=== PATIENT | female | born 1990 | race Caucasian/White ===

== ENCOUNTER 2016-12-10 11:48 | Inpatient (IN) | payer MEDICAID ==
[~2016-12-10] VITALS: Ht 152.4 cm; Wt 56.1 kg
[2016-12-10] MEDS ORDERED: PRENAT PO (12:06)
[2016-12-10 12:07] VITALS: Ht 152.4 cm; Wt 56.1 kg
[2016-12-10 12:08] VITALS: BP 107/68; PULSE 106; RESP 18
--- NOTE | 2016-12-10 12:51 | RADRPT ---
PROCEDURE: OB ultrasound for biophysical profile CLINICAL INDICATION: Spontaneous rupture of membranes. TECHNIQUE: Multiple sonographic images of the pelvis were obtained. Transabdominal view of the gr avid uterus are available for review. The images were reviewed on a PACS workstation. COMPARISON: None FINDINGS: breathing movement = 2/2 tone = 2/2 motion = 2/2 Quantitative amniotic fluid volume = 2/2 RACHEAL = 16.9 cm Single live intrauterine with cardiac activity at 146 beats per minute. There is a fundal placenta without previa. IMPRESSION: 1. Single living intrauterine gestation in cephalic position. 2. Biophysical profile = 8. 3. RACHEAL = 16.9 cm. RPTAT: [facility] Physician Valentina Date Time Electronically viewed and signed by Physician Valentina on 12/10/2016 12:50 /
[2016-12-10] MEDS ORDERED: CARBOPROST 250 MCG INJ IM PRN (14:00)
[2016-12-10] MEDS ORDERED: IBUPROFEN 600 MG TAB PO PRN (14:00)
[2016-12-10] MEDS ORDERED: BUTORPHANOL 2 MG INJ IV PRN ×2 (14:00)
[2016-12-10] MEDS ORDERED: OXYTOCIN 30 UNITS/LR 500 ML IV PRN (14:00)
[2016-12-10] MEDS ORDERED: MISOPROSTOL 200 MCG TAB PR PRN (14:00)
[2016-12-10] MEDS ORDERED: LIDOCAINE 1% (MPF) 30 ML INJ INJ PRN (14:00)
[2016-12-10] MEDS ORDERED: METHYLERGONOVINE 0.2 MG INJ IM PRN (14:00)
[2016-12-10] MEDS ORDERED: OXYCODONE/ASPIRIN (4.88/325) TAB PO PRN (14:00)
[2016-12-10] MEDS ORDERED: OXYTOCIN 30 UNITS/LR 500 ML IV SCH ×3 (14:00)
[2016-12-10] MEDS ORDERED: HYDROCODONE/APAP (5/325) TAB PO PRN (14:00)
[2016-12-10] MEDS ORDERED: OXYCODONE/ACETAMINOPHEN (5/325) TAB PO PRN (14:00)
[2016-12-10] MEDS: LACTATED RINGER'S 1,000 ML IV SCH ×3 (14:34→23:47)
[2016-12-10 15:23] LABS: BASOPHIL # 0.1 10^3/ul (0.0-0.1); BASOPHILS % 0.6 % (0.0-2.0); EOSINOPHILS # 0.1 10^3/ul (0.0-0.5); EOSINOPHILS % 1.6 % (0.0-7.0); HEMATOCRIT 34.9 % (37.0-47.0); HEMOGLOBIN 12.7 g/dl (12.0-16.0); LYMPHOCYTES # 2.1 10^3/ul (0.8-2.9); LYMPHOCYTES % 22.8 % (15.0-51.0); MEAN CORPUSCULAR HEMOGLOBIN 34.8 pg (29.0-33.0); MEAN CORPUSCULAR HGB CONC 36.4 g/dl (32.0-37.0); MEAN CORPUSCULAR VOLUME 95.6 fl (82.0-101.0); MEAN PLATELET VOLUME 11.4 fl (7.4-10.4); MONOCYTE # 0.9 10^3/ul (0.3-0.9); MONOCYTES % 10.1 % (0.0-11.0); NEUTROPHILS % 64.3 % (39.0-77.0); PLATELET COUNT 156 10^3/UL (140-415); RED BLOOD COUNT 3.65 10^6/ul (4.20-5.40); RED CELL DISTRIBUTION WIDTH 12.1 % (11.5-14.5)
[2016-12-10 15:38] LABS: INR 0.89; PT RATIO 0.9
[2016-12-10 15:39] LABS: PARTIAL THROMBOPLASTIN TIME 28.2 Sec (25.0-35.0)
[2016-12-10 15:44] LABS: ALANINE AMINOTRANSFERASE 30 IU/L (13-69); ALBUMIN 3.3 g/dl (3.3-4.9); ALKALINE PHOSPHATASE 165 IU/L (42-121); ANION GAP 12 (8-16); ASPARTATE AMINO TRANSFERASE 24 IU/L (15-46); BILIRUBIN,INDIRECT 0.4 mg/dl (0-1.1); BILIRUBIN,TOTAL 0.4 mg/dl (0.2-1.3); BLOOD UREA NITROGEN 8 mg/dl (7-20); CALCIUM 8.7 mg/dl (8.4-10.2); CARBON DIOXIDE 25 mmol/L (21-31); CHLORIDE 102 mmol/L (97-110); CREATININE 0.49 mg/dl (0.44-1.00); GLUCOSE 75 mg/dl (70-220); POTASSIUM 3.4 mmol/L (3.5-5.1); SODIUM 136 mmol/L (135-144); TOTAL PROTEIN 6.6 g/dl (6.1-8.1)
[2016-12-10] MEDS ORDERED: LACTATED RINGER'S 1,000 ML IV PRN (22:00)
[2016-12-11] MEDS ORDERED: AMPICILLIN 2 GM/NS (PMX) 100 ML IV ONE (01:30)
[2016-12-11] MEDS ORDERED: AMPICILLIN 2 GM/NS (PMX) 100 ML ONE (01:44)
[2016-12-11] MEDS ORDERED: AMPICILLIN 1 GM/NS (PMX) 50 ML ONE (05:17)
[2016-12-11] MEDS: AMPICILLIN 1 GM/NS (PMX) 50 ML IV SCH ×2 (05:28→09:56)
[2016-12-11] MEDS: LACTATED RINGER'S 1,000 ML IV SCH ×2 (06:02→22:55)
[2016-12-11] MEDS ORDERED: OXYTOCIN 30 UNITS/LR 500 ML BAG IV ONE (07:00)
[2016-12-11] MEDS ORDERED: DEXTROSE 5%-LR 1,000 ML IV SCH (08:41)
[2016-12-11] MEDS ORDERED: CEFAZOLIN 2 GM/50 ML (PMX) 50 ML IVPB SCH (09:00)
--- NOTE | 2016-12-11 09:29 | RADRPT ---
PROCEDURE: US OB. CLINICAL INDICATION: Leaking amniotic fluid. TECHNIQUE: Multiple sonographic images of the uterus were obtained. The images were revi ewed on a PACS workstation. COMPARISON: No prior studies are available for comparison. FINDINGS: There is a single live intrauterine gestation. heart rate is 132 beats per minute. Measurements were made in order to determine age. The results are as follows: BPD = 9.17 cm. HC = 32.75 cm. AC = 36.15 cm. FL = 7.28 cm. Estimated weight is 3590 +/- 539 grams. LMP growth percentile is 61 %. Menstrual age by ultrasound dates is 38 weeks 0 days. The estimated date of delivery is 12/25/2016. Position is cephalic and placenta is fundal grade II. There is no evidence for an abruption or place nta previa. IMPRESSION: 1. Single live intrauterine gestation of 38 weeks 0 days menstrual age by ultrasound dates. 2. The estimated date of delivery is 12/25/2016. RPTAT: QQ .Kit Green MD, Date Time Electronically viewed and signed by .Kit Green MD, on 12/11/2016 09:28 .R/
--- NOTE | 2016-12-11 09:30 | RADRPT ---
PROCEDURE: US biophysical profile. CLINICAL INDICATION: Leaking amniotic fluid. TECHNIQUE: Multiple sonographic images of the uterus were obtained. The images were revi ewed on a PACS workstation. COMPARISON: No prior studies are available for comparison. FINDINGS: There is a single live intrauterine gestation. heart rate is 137 beats per minute. The position is cephalic. The placenta is fundal grade II with no abruption or previa. The RACHEAL is 17.3 cm. (Normal = 5-20 cm.) Breathing Movement: 2 Gross Body Movement: 2 Tone: 2 Qualitative Amniotic Fluid Volume: 2 TOTAL: 8 IMPRESSION: 1. The biophysical score is 8/8. RPTAT: QQ .Kit Green MD, MD Date Time Electronically viewed and signed by .Kit Green MD, on 12/11/2016 09:29 .R/
[2016-12-11] MEDS ORDERED: NALOXONE (0.4 MG/ML) INJ IV PRN (13:00)
[2016-12-11] MEDS ORDERED: MEPERIDINE 25 MG INJ IV PRN (13:00)
[2016-12-11] MEDS ORDERED: DIPHENHYDRAMINE 50 MG INJ IV PRN ×2 (13:00)
[2016-12-11] MEDS ORDERED: FENTAnyl 50 MCG/ML VIAL IV PRN ×2 (13:00)
[2016-12-11] MEDS ORDERED: HYDROmorphONE (0.2 MG/ML) 10ML SYG IV PRN ×2 (13:00)
[2016-12-11] MEDS ORDERED: METOCLOPRAMIDE 10 MG INJ IV PRN (13:00)
[2016-12-11] MEDS ORDERED: HYDROmorphONE 1 MG/ML SYG IV PRN ×2 (13:00)
[2016-12-11] MEDS ORDERED: ONDANSETRON 4 MG INJ IV PRN ×2 (13:00)
[2016-12-11] MEDS ORDERED: KETOROLAC 30 MG INJ IV PRN ×2 (13:00)
[2016-12-11] MEDS ORDERED: morphine SULFATE/PF (10 MG/10 ML) INJ ONE (14:34)
[2016-12-11] MEDS ORDERED: PHENYLephrine (100 MCG/ML) 5ML SYG ONE ×2 (14:41→15:10)
--- NOTE | 2016-12-11 15:09 | HP ---
Date/Time of Note Date/Time of Note DATE: 12/11/16 TIME: 15:08 OB - History Hx of Present Free Text/Dictation at 39 weeks with SROM Care: Good Care Ultrasounds: Normal mid trimester US Obstetrical Complications: None Medical Complications: None Past Family/Social History * Past Medical, Surgical, Family and Obstetric Histories reviewed from chart. OB Admission Exam Vital Signs Vital Signs Vital Signs Date Time Temp Pulse Resp B/P Pulse Ox O2 Delivery O2 Flow Rate FiO2 12/10/16 12:08 97.8 106 18 107/68 Room Air Physical Exam HEENT: WNL Heart: Rhythm Normal Lungs: Clear, Equal Abdomen: WNL Extremities: Normal Reflexes: Normal Cervical Dilatation: 1cm Effacement: 0% Station: -3 Membranes: Ruptured Amniotic Fluid: Clear Heart Rate: 130's Accelerations: Accelerations Present Decelerations: No Decelerations Contractions on Admission: None Last 72 hours Lab Results CBC & BMP 12/10/16 14:50 Liver Function Test 12/10/16 14:50 Alanine Aminotransferase (ALT/SGPT) 30 Albumin 3.3 Alkaline Phosphatase 165 H Aspartate Amino Transf (AST/SGOT) 24 Direct Bilirubin 0.00 Total Protein 6.6 OB Assessment/Plan Reason for admission: rupture of membranes Plan: Section (FOR NON REASURING TRACING) SUHAIL LAMBERT MD Dec 11, 2016 15:09
[2016-12-11] MEDS ORDERED: EPHEDrine SULFATE 50 MG/5 ML SYG ONE (15:10)
--- NOTE | 2016-12-11 15:10 | OPR ---
Operative Report Planned Procedure Procedure date Dec 11, 2016 Performed by: SUHAIL LAMBERT MD Assisting provider: FUAD RING MD Anesthesia Type: spinal Procedure Description Under satisfactory SPINAL[] anesthesia, the patient was prepped and draped and placed in a supine position, tilted to the left. Pfannenstiel incision was made , carried through the subcutaneous tissue. Bleeders brought under control with electrocautery. Fascia incised to the length of the incision. Rectus muscles from the fascia, divided midline. Peritoneum exposed, entered through a transverse incision. Exploration of abdomen revealed gravid uterus. Bladder flap was developed. Transverse incision was made in the lower segment of the uterus. Amniotic sac ruptured. [] amniotic fluid noted. [] Nasal oropharyngeal suction was performed. The baby was handed to the team for immediate attention. The placenta was delivered manually intact. Uterine cavity was cleaned with wet sponge and drainage established. Uterus closed in 2 layers using []ONE MONOCRYL in continuous fashion. Peritoneal cavity irrigated with warm saline. Sponge, needle and instrument count reported to be correct. Abdominal peritoneum closed with [] continuously. Rectus muscle approximated with []. Fascia closed with ONE MONOCRYL [], and skin closed with maribel. Estimated blood loss 700[]mL. Urine bag contained []mL of urine Post-Procedure Findings: Live Baby [], Apgars [] and [], weight [], position [], [] presentation []cord. Physician Certification I, the undersigned physician, hereby certify that I have discussed the procedure described in this consent form with this patient (or the patient's legal civil rights representative), including: * The risk and benefits of the procedure; * Any adverse reactions that may reasonably be expected to occur; * Any alternative efficacious methods of treatment which may be medically viable ; * The potential problems that may occur during recuperation; * Potential for blood transfusion and associated risks/benefits; and * Any research or economic interest I may have regarding this treatment. I further certify that the patient/legally responsible person was encouraged to ask question and that all questions were answered. SUHAIL LAMBERT MD Dec 11, 2016 15:10
[2016-12-11 18:20] VITALS: BP 99/55; PULSE 85; RESP 19
[2016-12-11 18:50] VITALS: BP 94/48; PULSE 105; RESP 19
[2016-12-11] MEDS ORDERED: METHYLERGONOVINE 0.2 MG INJ IM PRN (19:00)
[2016-12-11] MEDS ORDERED: OXYTOCIN 30 UNITS/LR 500 ML IV PRN (19:00)
[2016-12-11] MEDS ORDERED: NACL 0.9% 3 ML SYG IV SCH (19:00)
[2016-12-11] MEDS ORDERED: CARBOPROST 250 MCG INJ IM PRN (19:00)
[2016-12-11] MEDS ORDERED: HYDROCODONE/APAP (5/325) TAB PO PRN (19:00)
[2016-12-11] MEDS ORDERED: OXYCODONE/ACETAMINOPHEN (5/325) TAB PO PRN (19:00)
[2016-12-11] MEDS ORDERED: LANOLIN 7 GM TUBE TOP PRN (19:00)
[2016-12-11] MEDS ORDERED: MISOPROSTOL 200 MCG TAB PR PRN (19:00)
[2016-12-11] MEDS ORDERED: NA PHOSPHATE/BIPHOS 133 ML ENEMA PR PRN (19:00)
[2016-12-11 19:45] VITALS: BP 99/56; PULSE 86; RESP 19
[2016-12-11] MEDS: IBUPROFEN 800 MG TAB PO SCH (22:00)
[2016-12-11] MEDS: OXYTOCIN 30 UNITS/LR 500 ML IV SCH ×2 (22:04→22:39)
[2016-12-12] VITALS: BP 105/59; PULSE 89; RESP 19
[2016-12-12] MEDS: LACTATED RINGER'S 1,000 ML IV SCH ×4 (01:46→23:55)
[2016-12-12 04:05] VITALS: BP 106/61; PULSE 88; RESP 19
[2016-12-12] MEDS: IBUPROFEN 800 MG TAB PO SCH ×3 (06:00→21:33)
[2016-12-12 07:45] VITALS: BP 107/60; PULSE 95; RESP 19
[2016-12-12 08:22] LABS: BASOPHIL # 0.1 10^3/ul (0.0-0.1); BASOPHILS % 0.7 % (0.0-2.0); EOSINOPHILS # 0.1 10^3/ul (0.0-0.5); EOSINOPHILS % 0.8 % (0.0-7.0); HEMATOCRIT 29.1 % (37.0-47.0); HEMOGLOBIN 10.5 g/dl (12.0-16.0); LYMPHOCYTES # 1.5 10^3/ul (0.8-2.9); MEAN CORPUSCULAR HEMOGLOBIN 34.9 pg (29.0-33.0); MEAN CORPUSCULAR HGB CONC 36.1 g/dl (32.0-37.0); MEAN CORPUSCULAR VOLUME 96.7 fl (82.0-101.0); MEAN PLATELET VOLUME 11.5 fl (7.4-10.4); MONOCYTE # 0.9 10^3/ul (0.3-0.9); MONOCYTES % 8.7 % (0.0-11.0); NEUTROPHILS % 75.5 % (39.0-77.0); PLATELET COUNT 120 10^3/UL (140-415); RED BLOOD COUNT 3.01 10^6/ul (4.20-5.40); WHITE BLOOD COUNT 10.6 10^3/ul (4.8-10.8)
--- NOTE | 2016-12-12 11:36 | CONS ---
Date/Time of Note Date/Time of Note DATE: 12/12/16 TIME: 11:36 Consultation Date/Type/Reason Admit Date/Time Dec 10, 2016 at 12:54 Initial Consult Date 12/12/16 Type of Consultation: Anesthesiology Reason for Consultation Follow up 24 HR Interval Summary Free Text/Dictation Pt seen and examined is POD#1 s/p primary c/s. Pt received spinal duramorph for post-op pain control. She states she is doing well and her pain is adequately controlled at this time. No N/V/D/C/LOWE. No numbness in her extremities. Will continue to follow. Constitutional: improved, no complaints Exam/Review of Systems Vital Signs Vitals Vital Signs Date Time Temp Pulse Resp B/P Pulse Ox O2 Delivery O2 Flow Rate FiO2 12/12/16 09:12 95 21 12/12/16 07:45 98.5 95 19 107/60 Room Air Intake and Output 12/11/16 12/11/16 12/12/16 15:00 23:00 07:00 Intake Total 7 ml 1125 ml Output Total 650 ml 2100 ml 850 ml Balance -643 ml -2100 ml 275 ml Results Result Diagram: 12/12/16 0728 12/10/16 1450 Results 24 hrs Laboratory Tests Test 12/12/16 07:28 White Blood Count 10.6 Red Blood Count 3.01 L Hemoglobin 10.5 L Hematocrit 29.1 L Mean Corpuscular Volume 96.7 Mean Corpuscular Hemoglobin 34.9 H Mean Corpuscular Hemoglobin Concent 36.1 Red Cell Distribution Width 12.0 Platelet Count 120 #L Mean Platelet Volume 11.5 H Neutrophils % 75.5 Lymphocytes % 14.0 L Monocytes % 8.7 Eosinophils % 0.8 Basophils % 0.7 Nucleated Red Blood Cells % 0.0 Neutrophils # (Manual) 8.0 H Lymphocytes # 1.5 Monocytes # 0.9 Eosinophils # 0.1 Basophils # 0.1 Nucleated Red Blood Cells # 0.0 Medications Medications Current Medications Ketorolac Tromethamine (Toradol) 30 mg Q6H PRN IV PAIN; Start 12/11/16 at 13:00 ; Stop 12/12/16 at 12:59 Hydromorphone HCl (Dilaudid) 0.2 mg Q3H PRN IV PAIN LEVEL 1-5; Start 12/11/16 at 13:00; Stop 12/12/16 at 12:59 Hydromorphone HCl (Dilaudid) 0.4 mg Q3H PRN IV PAIN LEVEL 6-10; Start 12/11/16 at 13:00; Stop 12/12/16 at 12:59 Diphenhydramine HCl (Benadryl) 25 mg Q6H PRN IV ITCHING; Start 12/11/16 at 13: 00; Stop 12/12/16 at 12:59 Ondansetron HCl 4 mg 4 mg Q6H PRN IV NAUSEA AND/OR VOMITING; Start 12/11/16 at 13:00; Stop 12/12/16 at 12:59 Lactated Ringer's (Lr) 1,000 ml @ 125 mls/hr Q8H IV Last administered on t 09:39; Admin Dose 125 MLS/HR; Start 12/11/16 at 18:39 Acetaminophen/ Hydrocodone Bitart ([place] (5/325)) 2 tab Q4H PRN PO PAIN LEVEL 7 -10; Start 12/11/16 at 19:00 Oxycodone/ Acetaminophen (Percocet (5/ 325)) 2 tab Q4H PRN PO PAIN LEVEL 7-10; Start 12/11/16 at 19:00 Ibuprofen (Motrin) 800 mg Q8 PO ; Start 12/11/16 at 22:00 Simethicone (Mylicon) 160 mg Q8H PRN PO DISTENSION/GAS/BLOATING; Start at 19:00 Sodium Biphosphate/ Sodium Phosphate (Fleet Enema) 133 ml DAILY PRN NM CONSTIPATION; Start 12/11/16 at 19:00 Diphtheria/ Tetanus/Acell Pertussis (Adacel) 0.5 ml ONCE ONCE IM* ; Start at 09:00; Stop 12/14/16 at 09:01 Measles/Mumps/ Rubella Vaccine Live 0.5 ml 0.5 ml ONCE ONCE SC* ; Start at 09:00; Stop 12/14/16 at 09:01 Oxytocin/Lactated Ringer's 500 ml @ 0 mls/hr ONCE PRN IV For Hemorrhage Management; Start 12/11/16 at 19:00 Methylergonovine Maleate (Methergine) 0.2 mg ONCE PRN IM VAGINAL BLEEDING; Start 12/11/16 at 19:00 Carboprost Tromethamine (Hemabate) 250 mcg ONCE PRN IM VAGINAL BLEEDING; Start 12/11/16 at 19:00 Misoprostol (Cytotec) 1,000 mcg ONCE PRN NM VAGINAL BLEEDING; Start 12/11/16 at 19:00 EVA THORPE Dec 12, 2016 11:36
[2016-12-12 12:08] VITALS: BP 108/55; PULSE 93; RESP 19
[2016-12-12] MEDS ORDERED: KETOROLAC 30 MG INJ ONE (13:48)
[2016-12-12 16:00] VITALS: BP 101/59; PULSE 92; RESP 19
--- NOTE | 2016-12-12 17:09 | QN ---
Documentation Comment pod 1 pt doing well vss exam wnl a/p pod 1 continue care JOSE L ROSS MD Dec 12, 2016 17:09
[2016-12-13 03:50] VITALS: BP 103/57; PULSE 87; RESP 19
[2016-12-13] MEDS: IBUPROFEN 800 MG TAB PO SCH ×3 (05:27→21:30)
[2016-12-13 08:10] VITALS: BP 108/76; PULSE 73; RESP 18
[2016-12-13] MEDS: LACTATED RINGER'S 1,000 ML IV SCH ×2 (10:39→18:39)
[2016-12-13 16:28] VITALS: BP 103/73; PULSE 95; RESP 18
--- NOTE | 2016-12-13 18:01 | QN ---
Documentation Comment doing well vss abd soft incsion c&d SUHAIL LAMBERT MD Dec 13, 2016 18:01
[2016-12-13 19:35] VITALS: BP 104/61; PULSE 89; RESP 18
[2016-12-14 04:00] VITALS: BP 93/69; PULSE 90; RESP 17
[2016-12-14] MEDS: IBUPROFEN 800 MG TAB PO SCH (05:46)
[2016-12-14 08:29] VITALS: BP 106/71; PULSE 86; RESP 19
[2016-12-14] MEDS ORDERED: MEASLES,MUMPS,RUBELLA VACCINE INJ SC* ONE (09:00)
[2016-12-14] MEDS ORDERED: DIPHTH/TET/ACEL PERTUSS (ADULT) 0.5 ML VIAL IM* ONE (09:00)
--- NOTE | 2016-12-14 10:04 | DS ---
Date/Time of Note Date/Time of Note DATE: 12/14/16 TIME: 10:03 Discharge Summary Admission/Discharge Info Admit Date/Time Dec 10, 2016 at 12:54 Discharge Date/Time Discharge Diagnosis term preg. underwent a c/s for non reassuring tracing Patient Condition: Stable Hospital Course unremarkable Home Meds Reported Medications Multivit/Min/Fol Ac/Iron/Pren* ( S*) 1 Tab Tab, 1 TAB PO DAILY, TAB 12/10/16 Primary Care Provider Care Physician No Primary SUHAIL LAMBERT MD Dec 14, 2016 10:04
--- NOTE | 2016-12-14 10:05 | PD.PPDC ---
RN PSYCHIATRIC Discharge Instruction Condition Patient Condition: Stable Diet Diet: Resume Regular Diet Activity/Restrictions Activity: Normal Activity May Shower Restrictions: No Exercising No Lifting No Driving No Sexual Activity Nothing in the Vagina No [place] No Tampons, douche Wound/Drain Care Instructions Wound/Drain Care Instructions: Wash with soap and water Keep clean and dry Follow-up Follow-up with Physician: Week/Weeks Return to clinic for [employer] Instructions: Fever greater than 101 Chills Worsening abdominal pain Excessive Vaginal Bleeding More than 2 pads per hour Unable to tolerate diet OB Instructions: Breast Tenderness Depression Blurried Vision Headache Surgical Instructions: Incisional Drainage Incisional Redness SUHAIL LAMBERT MD Dec 14, 2016 10:05
== END 2016-12-14 14:49 | disposition home or self-care (01) | DRG 766 ==
LOC: OBT 11:48 → L-D 11:49 → OBT 12:54 → L-D 12:54 → PP1 12-11 20:44
PROVIDERS: ADMIT Obstetrics & Gynecology; ATTEND Obstetrics & Gynecology
PROC: 3E033VJ Introduction of Other Hormone into Peripheral Vein, Percutaneous Approach (ICD-10-PCS; 2016-12-11)
PROC: 10D00Z1 Extraction of Products of Conception, Low, Open Approach (ICD-10-PCS; principal; 2016-12-11 14:15)
DX: O76 Abnormality in fetal heart rate and rhythm complicating labor and delivery (principal); Z37.0 Single live birth; Z3A.39 39 weeks gestation of pregnancy
CPT/HCPCS: 76815; 76818; 80053; 84112; 85025; 85610; 85730; 86592; 86850; 86900; 86901; 87340; 90715; 94760; 99464; G0463; J0290; J0690; J1885; J2274; J2370; J2590; J7120; J7121